=== PATIENT | female | born 1970 | race Caucasian/White ===

== ENCOUNTER 2019-09-11 16:39 | Outpatient (CLI) | payer OTHER ==
[~2019-09-11 16:39] MED LIST: SYNTHROID50 MCG
== END 2019-09-11 18:00 | disposition home or self-care (01) ==
LOC: LAB 16:39
DX: J11.1 Influenza due to unidentified influenza virus with other respiratory manifestations (principal)

== ENCOUNTER 2021-07-06 08:00 | Outpatient (CLI) | payer OTHER | END 2021-07-06 08:30 | disposition home or self-care (01) | LOC: PPH VACUNA 08:00 | PROVIDERS: ATTEND Emergency Medicine Pediatric Emergency Medicine | DX: Z23 Encounter for immunization (principal) ==

== ENCOUNTER 2022-04-15 10:52 | Outpatient (CLI) | payer OTHER | END 2022-04-15 10:53 | disposition home or self-care (01) | LOC: NUCLEAR 10:52 | PROVIDERS: ATTEND Physical Medicine & Rehabilitation | DX: M81.8 Other osteoporosis without current pathological fracture (principal); Z88.8 Allergy status to other drugs, medicaments and biological substances ==

== ENCOUNTER 2023-02-25 13:23 | Outpatient (CLI) | payer OTHER | END 2023-02-25 13:33 | disposition home or self-care (01) | LOC: SONOGRAMA 13:23 | PROVIDERS: ATTEND Physical Medicine & Rehabilitation | DX: M25.511 Pain in right shoulder (principal); M25.512 Pain in left shoulder; M54.2 Cervicalgia ==

== ENCOUNTER 2025-02-20 13:52 | Outpatient (CLI) | payer OTHER | END 2025-02-20 13:53 | disposition home or self-care (01) | LOC: NUCLEAR 13:52 | DX: M81.0 Age-related osteoporosis without current pathological fracture (principal) ==